=== PATIENT | female | born 1960 | race Caucasian/White ===

== ENCOUNTER 2019-09-16 20:35 | Emergency (ER) | payer MEDICAID ==
[2019-09-16 20:49] VITALS: BP 132/61; PULSE 90
[2019-09-16 21:08] LABS: CHLORIDE,CL 103 mmol/L (98-107); SODIUM,NA 141 mmol/L (136-145)
--- NOTE | 2019-09-16 21:19 | EDM.PDOC ---
ED HPI GENERAL MEDICAL PROBLEM - General Chief Complaint: Respiratory Problem Stated Complaint: COUGH, CHILLS Time Seen by Provider: 09/16/19 20:40 Source of Information: Reports: Patient History Limitations: Reports: Intoxication - History of Present Illness INITIAL COMMENTS - FREE TEXT/NARRATIVE: Patient is a 58-year-old female who is seen in the ER with chief complaint of cough chills and rib pain Onset: Gradual Duration: Day(s):, Getting Worse Location: Reports: Chest Quality: Reports: Ache, Throbbing Severity: Moderate Improves with: Reports: None Worsens with: Reports: Breathing, Other (Coughing) Associated Symptoms: Reports: Chest Pain Treatments HURRICANE TRACKER: Reports: Aspirin - Related Data Allergies Allergy/AdvReac Type Severity Reaction Status Date / Time Latex, Natural Rubber Allergy Intermediate Rash Verified 09/16/19 20:37 acetaminophen [From Tylenol] Allergy Mild Headache Verified 09/16/19 20:37 ibuprofen Allergy Mild Bradycardia Verified 09/16/19 20:37 codeine Allergy Other Verified 09/16/19 20:37 insect venom Allergy Rash Verified 09/16/19 20:37 naproxen sodium [From Aleve] Allergy Other Verified 09/16/19 20:37 shellfish derived Allergy Airway Verified 09/16/19 20:37 Tightness Home Meds: Home Meds Atenolol [Tenormin] 25 mg PO DAILY 04/26/14 [History] Aspirin 325 mg PO DAILY 11/28/15 [History] Past Medical History Cardiovascular History: Reports: Other (See Below) Other Cardiovascular History: galo valve disorder TUBE FITTER History: Reports: Other (See Below) Other TUBE FITTER History: , tubal ligation Musculoskeletal History: Reports: Other (See Below) Oncologic (Cancer) History: Reports: Breast - Past Surgical History Musculoskeletal Surgical History: Reports: Shoulder Replacement, Other (See Below) Social & Family History - Living Situation & Occupation Occupation: Unemployed ED ROS GENERAL - Review of Systems Review Of Systems: See Below Constitutional: Reports: No Symptoms HEENT: Reports: No Symptoms Respiratory: Reports: Other Cardiovascular: Reports: No Symptoms Endocrine: Reports: No Symptoms GI/Abdominal: Reports: No Symptoms : Reports: No Symptoms Musculoskeletal: Reports: No Symptoms Skin: Reports: No Symptoms Neurological: Reports: No Symptoms Psychiatric: Reports: No Symptoms Hematologic/Lymphatic: Reports: No Symptoms Immunologic: Reports: No Symptoms ED EXAM, GENERAL - Physical Exam Exam: See Below Exam Limited By: No Limitations General Appearance: Alert Ears: Normal External Exam, Normal Canal, Hearing Grossly Normal, Normal TMs Nose: Normal Inspection, Normal Mucosa, No Blood Throat/Mouth: Normal Inspection, Normal Lips, Normal Teeth, Normal Gums, Normal Oropharynx, Normal Voice, No Airway Compromise Head: Atraumatic Neck: Normal Inspection Respiratory/Chest: No Respiratory Distress, Lungs Clear, Decreased Breath Sounds Cardiovascular: Normal Peripheral Pulses, Regular Rate, Rhythm, No Edema, No Gallop, No JVD, No Murmur, No Rub GI/Abdominal: Normal Bowel Sounds, Soft, Non-Tender, No Organomegaly, No Distention, No Abnormal Bruit, No Mass (Female) Exam: Deferred Back Exam: Normal Inspection, Full Range of Motion, NT Extremities: Normal Inspection, Normal Range of Motion, Non-Tender, Normal Capillary Refill, No Pedal Edema Neurological: Alert, Oriented, CN II-XII Intact, Normal Cognition, Normal Gait, Normal Reflexes, No Motor/Sensory Deficits Skin Exam: Warm, Dry, Intact, Normal Color, No Rash Departure - Departure Time of Disposition: 21:24 Disposition: Home, Self-Care 01 Condition: Fair Clinical Impression: Bronchitis - Discharge Information *PRESCRIPTION DRUG MONITORING PROGRAM REVIEWED*: No *COPY OF PRESCRIPTION DRUG MONITORING REPORT IN PATIENT GLENNA: No Referrals: Cari Arzate, SEWER PIPE PRESS OPERATOR [Primary Care Provider] - Care Plan Goals: Patient will start Zithromax 500 daily 3 days
== END 2019-09-16 21:32 | disposition home or self-care (01) ==
LOC: LL.ED 20:35
DX: J40 Bronchitis, not specified as acute or chronic (principal)
CPT/HCPCS: 36415; 71046; 80048; 85025; 99283-25

== ENCOUNTER 2019-09-23 16:47 | Emergency (ER) | payer MEDICAID ==
[2019-09-23 18:20] LABS: CHLORIDE,CL 103 mmol/L (98-107); SODIUM,NA 142 mmol/L (136-145)
--- NOTE | 2019-09-23 18:34 | EDM.PDOC ---
ED HPI GENERAL MEDICAL PROBLEM - General Chief Complaint: Cardiovascular Problem Stated Complaint: palpitations Time Seen by Provider: 09/23/19 17:20 Source of Information: Reports: Patient History Limitations: Reports: No Limitations, Intoxication - History of Present Illness INITIAL COMMENTS - FREE TEXT/NARRATIVE: Patient is a 58-year-old female who is seen in the ER with palpitations chest heaviness coughing at this time x-ray revealed pneumonia white count was 14.7. Onset: Gradual Duration: Day(s):, Getting Worse, Heavy Location: Reports: Chest Quality: Reports: Ache Severity: Moderate Improves with: Reports: None Worsens with: Reports: Breathing Associated Symptoms: Reports: No Other Symptoms - Related Data Allergies Allergy/AdvReac Type Severity Reaction Status Date / Time Latex, Natural Rubber Allergy Intermediate Rash Verified 09/23/19 16:52 acetaminophen [From Tylenol] Allergy Mild Headache Verified 09/23/19 16:52 ibuprofen Allergy Mild Bradycardia Verified 09/23/19 16:52 codeine Allergy Other Verified 09/23/19 16:52 insect venom Allergy Rash Verified 09/23/19 16:52 naproxen sodium [From Aleve] Allergy Other Verified 09/23/19 16:52 shellfish derived Allergy Airway Verified 09/23/19 16:52 Tightness Home Meds: Home Meds Atenolol [Tenormin] 25 mg PO BID 04/26/14 [History] Aspirin 325 mg PO DAILY 11/28/15 [History] Levofloxacin [Levaquin] 500 mg PO DAILY #5 tablet 09/23/19 [Rx] Past Medical History Cardiovascular History: Reports: Other (See Below) Other Cardiovascular History: galo valve disorder SOLAR SALES ASSOCIATE History: Reports: Other (See Below) Other SOLAR SALES ASSOCIATE History: , tubal ligation Musculoskeletal History: Reports: Other (See Below) Oncologic (Cancer) History: Reports: Breast - Past Surgical History Musculoskeletal Surgical History: Reports: Shoulder Replacement, Other (See Below) Social & Family History - Living Situation & Occupation Occupation: Unemployed ED ROS GENERAL - Review of Systems Review Of Systems: ROS reveals no pertinent complaints other than HPI. ED EXAM, GENERAL - Physical Exam Exam: See Below Exam Limited By: No Limitations General Appearance: Alert, WD/WN, No Apparent Distress Ears: Normal External Exam, Normal Canal, Hearing Grossly Normal, Normal TMs Ear Exam: Bilateral Ear: Auricle Normal, Canal Normal, TM normal Nose: Normal Inspection, Normal Mucosa, No Blood Throat/Mouth: Normal Inspection, Normal Lips, Normal Teeth, Normal Gums, Normal Oropharynx, Normal Voice, No Airway Compromise Head: Atraumatic, Normocephalic Neck: Normal Inspection, Supple, Non-Tender, Full Range of Motion Respiratory/Chest: Decreased Breath Sounds, Rales Cardiovascular: Normal Peripheral Pulses, Regular Rate, Rhythm, No Edema, No Gallop, No JVD, No Murmur, No Rub GI/Abdominal: Normal Bowel Sounds, Soft, Non-Tender, No Organomegaly, No Distention, No Abnormal Bruit, No Mass (Female) Exam: Deferred Rectal (Female) Exam: Deferred Back Exam: Decreased Range of Motion Extremities: Normal Inspection, Normal Range of Motion, Non-Tender, Normal Capillary Refill, No Pedal Edema Neurological: Alert, Oriented, CN II-XII Intact, Normal Cognition, Normal Gait, Normal Reflexes, No Motor/Sensory Deficits Psychiatric: Normal Affect, Normal Mood Skin Exam: Warm, Dry, Intact, Normal Color, No Rash Course - Vital Signs Last Recorded V/S: Last Vital Signs Temp 98.6 F 09/23/19 16:47 Pulse 78 09/23/19 16:47 Resp 20 09/23/19 16:47 BP 134/60 09/23/19 16:47 Pulse Ox 95 09/23/19 16:47 - Orders/Labs/Meds Orders: Active Orders 24 hr Category Date Time Status EKG Documentation Completion [RC] ASDIRECTED Care 09/23/19 17:29 Active Chest 2V [CR] Stat Exams 09/23/19 17:28 Taken EKG 12 Lead [EK] Stat Ther 09/23/19 17:29 Ordered Labs: Laboratory Tests 09/23/19 09/23/19 Range/Units 17:50 17:50 WBC 14.7 H (4.0-10.2) K/uL RBC 4.84 (3.77-5.09) M/uL Hgb 14.9 (11.7-15.5) g/dL Hct 45.3 (34.0-46.0) % MCV 93.6 (84.0-98.0) fL MCH 30.8 (28.2-33.3) pg MCHC 32.9 (31.7-36.0) g/dL RDW 13.4 (11.2-14.1) % Plt Count 505 H D (150-350) K/uL Neut % (Auto) 60.7 (45.0-80.0) % Lymph % (Auto) 25.4 (10.0-50.0) % [place] % (Auto) 10.9 (2.0-14.0) % Eos % (Auto) 2.7 (0.0-5.0) % Baso % (Auto) 0.3 (0.0-2.0) % Neut # (Auto) 8.90 H (1.40-7.00) K/uL Lymph # (Auto) 3.72 H (0.50-3.50) K/uL [place] # (Auto) 1.60 H (0.00-1.00) K/uL Eos # (Auto) 0.39 (0.00-0.50) K/uL Baso # (Auto) 0.04 (0.00-0.20) K/uL Sodium 142 (136-145) mmol/L Potassium 3.7 (3.5-5.1) mmol/L Chloride 103 (98-107) mmol/L Carbon Dioxide 28.2 (21.0-32.0) mmol/L BUN 7 (7-18) mg/dL Creatinine 0.56 (0.51-1.17) mg/dL Est Cr Clr Drug Dosing 85.55 mL/min Estimated GFR (MDRD) > 60 mL/min Glucose 104 (74-106) mg/dL Calcium 9.4 (8.5-10.1) mg/dL Troponin I 0.000 (0.000-0.056) ng/mL Departure - Departure Time of Disposition: 18:34 Disposition: Home, Self-Care 01 Clinical Impression: Pneumonia Referrals: PCP,None [Primary Care Provider] - Care Plan Goals: Patient will be sent home on 500 daily 10 day - My Orders Last 24 Hours: My Active Orders 09/23/19 17:28 Chest 2V [CR] Stat 09/23/19 17:29 EKG Documentation Completion [RC] ASDIRECTED EKG 12 Lead [EK] Stat - Assessment/Plan Last 24 Hours: My Active Orders 09/23/19 17:28 Chest 2V [CR] Stat 09/23/19 17:29 EKG Documentation Completion [RC] ASDIRECTED EKG 12 Lead [EK] Stat
[2019-09-23 19:06] VITALS: PULSE 80
[2019-09-23 19:07] VITALS: BP 120/65
== END 2019-09-23 18:44 | disposition home or self-care (01) ==
LOC: LL.ED 16:47
DX: J18.9 Pneumonia, unspecified organism (principal); Z91.040 Latex allergy status; Z88.6 Allergy status to analgesic agent; Z88.8 Allergy status to other drugs, medicaments and biological substances; Z88.5 Allergy status to narcotic agent; Z91.038 Other insect allergy status; Z91.013 Allergy to seafood; Z79.82 Long term (current) use of aspirin
CPT/HCPCS: 36415; 71046; 80048; 84484; 85025; 93005; 99285-25

== ENCOUNTER 2020-09-27 22:13 | Emergency (ER) | payer MEDICAID ==
--- NOTE | 2020-09-27 22:25 | EDM.PDOC ---
ED HPI GENERAL MEDICAL PROBLEM - General Chief Complaint: General Stated Complaint: tooth abscess Time Seen by Provider: 09/27/20 22:17 Source of Information: Reports: Patient History Limitations: Reports: No Limitations - History of Present Illness INITIAL COMMENTS - FREE TEXT/NARRATIVE: Pt with dental issues for several months Has not been seen by dentist Onset: Today, Gradual Duration: Week(s): Location: Reports: Face - Related Data Allergies Allergy/AdvReac Type Severity Reaction Status Date / Time Latex, Natural Rubber Allergy Intermediate Rash Verified 09/27/20 22:15 acetaminophen [From Tylenol] Allergy Mild Headache Verified 09/27/20 22:15 ibuprofen Allergy Mild Bradycardia Verified 09/27/20 22:15 codeine Allergy Other Verified 09/27/20 22:15 insect venom Allergy Rash Verified 09/27/20 22:15 naproxen sodium [From Aleve] Allergy Other Verified 09/27/20 22:15 shellfish derived Allergy Airway Verified 09/27/20 22:15 Tightness Home Meds: Home Meds atenoloL [Tenormin] 25 mg PO BID 04/26/14 [History] Aspirin 325 mg PO DAILY 11/28/15 [History] Past Medical History Cardiovascular History: Reports: Other (See Below) Other Cardiovascular History: galo valve disorder ARMHOLE BASTER HAND History: Reports: Other (See Below) Other ARMHOLE BASTER HAND History: , tubal ligation Musculoskeletal History: Reports: Other (See Below) Oncologic (Cancer) History: Reports: Breast - Past Surgical History Musculoskeletal Surgical History: Reports: Shoulder Replacement, Other (See Below) Social & Family History - Living Situation & Occupation Occupation: Unemployed ED ROS GENERAL - Review of Systems Review Of Systems: See Below HEENT: Reports: Other (Dental pain) ED EXAM, GENERAL - Physical Exam Exam: See Below Exam Limited By: No Limitations Throat/Mouth: Other (Multiple dental caries Left lower jaw with swelling) Course - Re-Assessments/Exams Free Text/Narrative Re-Assessment/Exam: 09/27/20 22:24 Take home Amoxicillin 875 mg BID Follow up with dentist Departure - Departure Time of Disposition: 22:30 Disposition: Home, Self-Care 01 Clinical Impression: Dental caries - Discharge Information *PRESCRIPTION DRUG MONITORING PROGRAM REVIEWED*: Not Applicable *COPY OF PRESCRIPTION DRUG MONITORING REPORT IN PATIENT GLENNA: Not Applicable Additional Instructions: Rx Amoxicillin 875 mg BID Follow up with dentist
[2020-09-27 22:53] VITALS: BP 153/65; PULSE 60
== END 2020-09-27 22:55 | disposition home or self-care (01) ==
LOC: LL.ED 22:13
DX: K02.9 Dental caries, unspecified (principal); Z79.82 Long term (current) use of aspirin; Z79.899 Other long term (current) drug therapy; Z91.040 Latex allergy status; Z88.6 Allergy status to analgesic agent; Z88.5 Allergy status to narcotic agent; Z91.013 Allergy to seafood; Z91.018 Allergy to other foods
CPT/HCPCS: 99282; 99283

== ENCOUNTER 2021-02-07 14:57 | Emergency (ER) | payer OTHER, MEDICAID ==
[2021-02-07 15:16] VITALS: BP 148/71; PULSE 72
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
== END 2021-02-07 16:30 | disposition home or self-care (01) ==
LOC: LL.ED 14:57
DX: S00.83XA Contusion of other part of head, initial encounter (principal); S50.12XA Contusion of left forearm, initial encounter; Z91.013 Allergy to seafood; Z91.040 Latex allergy status; Z88.6 Allergy status to analgesic agent; Z88.5 Allergy status to narcotic agent; Z91.038 Other insect allergy status; Z79.82 Long term (current) use of aspirin; V89.2XXA Person injured in unspecified motor-vehicle accident, traffic, initial encounter
CPT/HCPCS: 70450; 73090-LT; 99283; 99284-25

== ENCOUNTER 2021-02-19 20:12 | Emergency (ER) | payer MEDICAID, OTHER ==
[2021-02-19] MEDS ORDERED: cefTRIAXone 500 MG Vial IM ONE (21:04)
[2021-02-19] MEDS ORDERED: Azithromycin 250 MG Tab PO ONE (21:04)
[2021-02-19] MEDS ORDERED: Ondansetron 4 MG Tab.DIS PO ONE (21:04)
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
== END 2021-02-19 21:45 | disposition home or self-care (01) ==
LOC: LL.ED 20:12
DX: T76.21XA Adult sexual abuse, suspected, initial encounter (principal); Z91.040 Latex allergy status; Z88.6 Allergy status to analgesic agent; Z88.5 Allergy status to narcotic agent; Z91.030 Bee allergy status; Z91.013 Allergy to seafood; Z79.82 Long term (current) use of aspirin; Z79.899 Other long term (current) drug therapy
CPT/HCPCS: 96372; 99284; A9270-GY; J0696

== ENCOUNTER 2021-07-09 22:15 | Emergency (ER) | payer OTHER, MEDICAID ==
[2021-07-09] MEDS ORDERED: Sodium Chloride 0.9% 10 ML Syringe FLUSH PRN (22:18)
[2021-07-09 22:52] LABS: PTT,PARTIAL THROMBOPLSTIN TIME 23.7 SEC (24.5-32.8)
[2021-07-09] MEDS ORDERED: Ondansetron 4 MG/2 ML SDV IVPUSH ONE (22:57)
[2021-07-09] MEDS ORDERED: Ondansetron 4 MG/2 ML SDV ONE (22:58)
[2021-07-09] MEDS ORDERED: Sodium Chloride 0.9% 1,000 ML IV SCH (23:00)
[2021-07-09 23:04] LABS: ANION GAP 12.4 meq/L (7-15); CHLORIDE,CL 109 mmol/L (98-107); SODIUM,NA 145 mmol/L (136-145)
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
== END 2021-07-09 23:00 ==
LOC: LL.ED 22:15
DX: S06.6X9A Traumatic subarachnoid hemorrhage with loss of consciousness of unspecified duration, initial encounter (principal); S02.92XA Unspecified fracture of facial bones, initial encounter for closed fracture; S50.312A Abrasion of left elbow, initial encounter; S50.311A Abrasion of right elbow, initial encounter; S80.212A Abrasion, left knee, initial encounter; F10.129 Alcohol abuse with intoxication, unspecified; Z91.040 Latex allergy status; Z88.5 Allergy status to narcotic agent; Z91.030 Bee allergy status; Z91.013 Allergy to seafood; Z88.8 Allergy status to other drugs, medicaments and biological substances; Z79.82 Long term (current) use of aspirin; Y90.5 Blood alcohol level of 100-119 mg/100 ml; V09.20XA Pedestrian injured in traffic accident involving unspecified motor vehicles, initial encounter; Y92.410 Unspecified street and highway as the place of occurrence of the external cause
CPT/HCPCS: 36415; 70450; 71045; 72125; 72170; 80053; 80307; 82150; 83690; 84484; 85025; 85610; 85730; 96374; 99284; 99285-25; J2405; J7030

== ENCOUNTER 2022-01-29 20:28 | Emergency (ER) | payer BC, MEDICAID ==
[2022-01-29 20:32] VITALS: BP 141/72; PULSE 84
== END 2022-01-29 20:53 | disposition home or self-care (01) ==
LOC: LL.ED 20:28
DX: G89.29 Other chronic pain (principal); M25.551 Pain in right hip; M25.552 Pain in left hip; Z91.040 Latex allergy status; Z88.5 Allergy status to narcotic agent; Z91.013 Allergy to seafood; Z88.8 Allergy status to other drugs, medicaments and biological substances; Z79.82 Long term (current) use of aspirin; Z72.0 Tobacco use; Z76.5 Malingerer [conscious simulation]
CPT/HCPCS: 99283; 99284

== ENCOUNTER 2022-05-17 14:25 | Emergency (ER) | payer BC, MEDICAID, OTHER ==
[2022-05-17 14:32] VITALS: BP 144/69; PULSE 82
[2022-05-17] MEDS ORDERED: Doxycycline Monohydrate 100 MG Cap ONE (15:15)
[2022-05-17] MEDS: Doxycycline Monohydrate 100 MG Cap PO SCH ×2 (15:26→15:28)
[2022-05-17 15:56] LABS: ANION GAP 9.8 meq/L (7-15)
== END 2022-05-17 15:34 | disposition home or self-care (01) ==
LOC: LL.ED 14:25
DX: S80.862A Insect bite (nonvenomous), left lower leg, initial encounter (principal); I10 Essential (primary) hypertension; M19.90 Unspecified osteoarthritis, unspecified site; Z79.82 Long term (current) use of aspirin; Z91.040 Latex allergy status; Z88.5 Allergy status to narcotic agent; Z88.8 Allergy status to other drugs, medicaments and biological substances; Z91.048 Other nonmedicinal substance allergy status; Z91.013 Allergy to seafood; W57.XXXA Bitten or stung by nonvenomous insect and other nonvenomous arthropods, initial encounter
CPT/HCPCS: 80053; 85025; 86617; 99283; A9270-GY

== ENCOUNTER 2022-11-16 21:54 | Emergency (ER) | payer MEDICAID ==
[2022-11-16 22:00] VITALS: BP 150/78; PULSE 96
[2022-11-16] MEDS: Cyclobenzaprine 10 MG Tab PO ONE (22:12)
[2022-11-16] MEDS: Morphine 2 MG/ML SYRINGE IM ONE (22:13)
== END 2022-11-16 22:30 | disposition home or self-care (01) ==
LOC: LL.ED 21:54
DX: M54.6 Pain in thoracic spine (principal); G89.29 Other chronic pain; F10.129 Alcohol abuse with intoxication, unspecified; I10 Essential (primary) hypertension; F17.210 Nicotine dependence, cigarettes, uncomplicated; Z91.040 Latex allergy status; Z88.5 Allergy status to narcotic agent; Z91.013 Allergy to seafood; Z88.8 Allergy status to other drugs, medicaments and biological substances; Z79.82 Long term (current) use of aspirin
CPT/HCPCS: 96372; 99283; A9270-GY; J2270

== ENCOUNTER 2022-12-23 15:38 | Emergency (ER) | payer MEDICAID ==
[2022-12-23 15:53] VITALS: BP 134/81; PULSE 81
== END 2022-12-23 16:20 | disposition home or self-care (01) ==
LOC: LL.ED 15:38
DX: K04.7 Periapical abscess without sinus (principal); I10 Essential (primary) hypertension; M19.90 Unspecified osteoarthritis, unspecified site; Z88.8 Allergy status to other drugs, medicaments and biological substances; Z88.6 Allergy status to analgesic agent; Z91.038 Other insect allergy status; Z91.040 Latex allergy status; Z88.5 Allergy status to narcotic agent; Z91.013 Allergy to seafood; Z79.82 Long term (current) use of aspirin; Z72.0 Tobacco use
CPT/HCPCS: 99283